=== PATIENT | female | born 1990 | race Caucasian/White ===

== ENCOUNTER 2018-08-01 22:30 | Emergency (ER) | payer MEDICAID ==
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
== END 2018-08-02 00:02 | disposition home or self-care (01) ==
LOC: JP.ED 22:30
DX: K52.9 Noninfective gastroenteritis and colitis, unspecified (principal); Z79.899 Other long term (current) drug therapy
CPT/HCPCS: 99284

== ENCOUNTER 2018-08-03 11:39 | Emergency (ER) | payer MEDICAID ==
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
== END 2018-08-03 13:36 | disposition home or self-care (01) ==
LOC: JP.ED 11:39
DX: B34.9 Viral infection, unspecified (principal); R10.84 Generalized abdominal pain; E66.9 Obesity, unspecified; Z98.890 Other specified postprocedural states
CPT/HCPCS: 36415; 80048; 85027; 99284

== ENCOUNTER 2020-08-23 23:32 | Emergency (ER) | payer MEDICAID ==
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
== END 2020-08-24 00:50 | disposition home or self-care (01) ==
LOC: JP.ED 23:32
DX: O20.8 Other hemorrhage in early pregnancy (principal); O99.211 Obesity complicating pregnancy, first trimester; E66.9 Obesity, unspecified; Z3A.14 14 weeks gestation of pregnancy
CPT/HCPCS: 36415; 84702; 85027; 99283; 99284

== ENCOUNTER 2021-02-18 04:44 | Inpatient (IN) | payer MEDICAID ==
[2021-02-18] MEDS ORDERED: Misoprostol 50 MCG (1/2 of 100 MCG) Tab VAG ONE (07:30)
[2021-02-18] MEDS ORDERED: Sodium Chloride 0.9% 10 ML Syringe FLUSH PRN ×2 (08:00→14:14)
[2021-02-18] MEDS ORDERED: Lactated Ringers 1,000 ML IV SCH (08:00)
[2021-02-18] MEDS ORDERED: fentaNYL 100 MCG/2 ML SDV IVPUSH PRN (08:00)
[2021-02-18] MEDS ORDERED: Ondansetron 4 MG/2 ML SDV IV PRN (08:00)
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
--- NOTE | 2021-02-18 08:56 | CRLUS ---
For Patients: As a result of the Century Cures Act, medical imaging exams and procedure reports are released immediately into your electronic medical record. You may view this report before your referring provider. If you have questions, please contact your health care provider. INDICATION: Planned induction TECHNIQUE: Ultrasound OB pelvis transabdominal. Real-time martin-scale imaging of the fetus was performed without stress testing. COMPARISON: None available FINDINGS: Sonographic imaging demonstrates a single living intrauterine gestation. Fetus demonstrates a regular cardiac rate of 140 beats per minute. Fetus has a cephalic orientation. The placenta lies anterior. Amniotic fluid volume appears normal. breathing movements, motion, and tone were all observed. IMPRESSION: Single viable intrauterine with a biophysical profile 03/02. Dictated by Bart Harmon MD @ 02/18/2021 8:56:[address] Bart Harmon @ Feb 18 2021 8:56AM
[2021-02-18] MEDS: Calcium Carbonate 500 MG Tab.Chew PO PRN ×2 (11:47→19:03)
--- NOTE | 2021-02-18 13:55 | PCM.PNLD ---
Labor Progress Note - VS & Meds Vital Signs: Last Vital Signs Temp 35.8 C L 02/18/21 12:00 Pulse 83 02/18/21 12:00 Resp 16 02/18/21 12:00 BP 126/73 02/18/21 12:00 Pulse Ox 98 02/18/21 07:33 Active Medications: Current Medications Calcium Carbonate/Glycine (Calcium Carbonate 500 Mg Tab.Chew) 1,000 mg PO Q2H PRN PRN Reason: Indigestion Last Admin: 02/18/21 11:47 Dose: 1,000 mg Documented by: Fentanyl (Fentanyl 100 Mcg/2 Ml Sdv) 100 mcg IVPUSH Q1H PRN PRN Reason: Pain (moderate 4-6) Lactated Ringer's (Ringers, Lactated) 1,000 mls @ 125 mls/hr IV ASDIRECTED FIONA Ondansetron HCl (Ondansetron 4 Mg/2 Ml Sdv) 4 mg IV Q4H PRN PRN Reason: Nausea/Vomiting Sodium Chloride (Sodium Chloride 0.9% 10 Ml Syringe) 10 ml FLUSH ASDIRECTED PRN PRN Reason: Keep Vein Open Discontinued Medications Misoprostol (Misoprostol 50 Mcg (1/2 Of 100 Mcg) Tab) 50 mcg VAG ONETIME ONE Stop: 02/18/21 07:31 Last Admin: 02/18/21 08:33 Dose: 50 mcg Documented by: - Uterine Contractions Uterine Monitoring Mode: External [place] Contraction Frequency (min): 1.5-2 Contraction Duration (sec): 50-60 Contraction Intensity: Moderate Uterine Resting Tone: Soft Other Uterine Monitoring: NOVII - Monitoring Monitor Mode: External Ultrasound Heart Rate (FHR) Variability: Moderate (6-25 bmp) Accelerations: Present, 15x15 Decelerations: None Strip Review: Category I - Vaginal Exam Dilation (cm): 5 Effacement (Percent): 80 Station: -2 Cervical Position: Midposition Sterile Vaginal Exam Performed By: Lenka Miles - Labor Progress (Free Text) Labor Progress: 02/18/21 Nice contraction pattern since this morning. Patient more uncomfortable now and breathing through contractions. SVE 5/80/-2. AROM done for small amount of clear fluid. Category 1 tracing. Calling for epidural shortly, bolus running.
[2021-02-18] MEDS ORDERED: Lactated Ringers 1,000 ML IV ONE (13:56)
[2021-02-18] MEDS ORDERED: ePHEDrine 50 MG/ML SDV IVPUSH PRN ×2 (13:56→14:14)
[2021-02-18] MEDS ORDERED: Naloxone 0.4 MG/ML SDV IVPUSH PRN (14:14)
[2021-02-18] MEDS ORDERED: diphenhydrAMINE 50 MG/ML SDV IVPUSH PRN ×2 (14:14)
[2021-02-18] MEDS ORDERED: ePHEDrine 50 MG/ML SDV ONE (14:22)
[2021-02-18] MEDS ORDERED: Lidocaine 1% 50 ML MDV ONE (14:23)
[2021-02-18] MEDS ORDERED: Ropivacaine 100 ML ONE (14:32)
--- NOTE | 2021-02-18 15:36 | ANES ---
DATE OF SERVICE: 02/18/2021 INDICATIONS: Ms. Manley is in active labor in approximately 5 cm and I was called by Lenka Miles to evaluate her for labor epidural. This is her second baby and she is in an active labor. Risks and benefits of the procedure were explained to the patient. She wished to proceed with a labor epidural. TECHNIQUE: She was placed in a sitting position. Her back was prepped x3 with Betadine, 1% lidocaine skin local was used. The epidural was placed at L3-4 using a 17-gauge Tuohy needle and loss of resistance technique. The epidural had very good feel throughout, and the epidural space was easily identified. There was negative CSF, negative blood, and negative paresthesias noted. Therefore, a catheter was threaded to 14 cm at the skin. There was negative CSF, negative blood, and negative paresthesias with the catheter. A 1.5% lidocaine test dose with epinephrine was given. This test dose was negative. The patient tolerated the test dose very nicely, therefore, a 12 mL bolus of 0.2% ropivacaine was given. The patient tolerated the bolus nicely and her vital signs remained stable. Therefore, the catheter was secured with a Tegaderm tape, and the patient was placed in a supine position. A bolus of 12 mL of 0.2% ropivacaine was given. She had very good results from the bolus and her vital signs remained stable. Therefore, a 0.2% ropivacaine drip was started at 12 mL/h. Her vital signs remained stable throughout the procedure and nurse was with me for the entire procedure. She had very good relief from the epidural and there were no complications noted. We will continue to monitor her throughout her Labor. Jorge Judd CRNA /[id number]
[2021-02-18] MEDS ORDERED: Ibuprofen 200 MG Tab, 24 Tab Bulk Bottle PO PRN (17:45)
[2021-02-18] MEDS ORDERED: Benzocaine 20% Top Spray 56 GM Bottle TOP ONE (17:45)
[2021-02-18] MEDS ORDERED: Acetaminophen 325 MG Tab, 50 Tab Bulk Bottle PO PRN (17:45)
[2021-02-18] MEDS ORDERED: Docusate Sodium 100 MG Cap PO PRN (17:45)
[2021-02-18] MEDS ORDERED: Witch Hazel Medicated Pads 100/Jar TOP ONE (17:45)
[2021-02-18] MEDS ORDERED: Lanolin 100% Cream 40 GM Tube TOP PRN (17:45)
--- NOTE | 2021-02-18 18:02 | PCM.DEL ---
L & D Note - General Info Date of Service: 02/18/21 Mother's Due Date: 02/20/21 - Delivery Note Labor: Augmented by ARM Cervical Ripening Method: Misoprostil Delivery Outcome: Livebirth Delivery Method: Spontaneous Vaginal Delivery-Single Infant Delivery Mode: Spontaneous Presentation: Left Occiput Anterior (ANT) Nuchal Cord: Present (1 loose, reduced) Anesthesia Type: Epidural Amniotic Fluid Description: Clear Episiotomy Type: None Laceration: None, Periurethral (skin tear, not repaired) Placenta: Intact, Spontaneous Cord: 3 Vessels Estimated Blood Loss: 350 Resuscitation Needed: Yes : Bulb Syringe, Stimulated, Warmed, [place] Used, Warmer Used Provider: Lenka Miles Score 1 min: 7 Score 5 min: 8 Second Stage Interventions: Reports: Second Nurse Assessed Progress of Descent, Second Nurse Reviewed Contraction Pattern, Second Nurse Reviewed Heart Tones, Encouragement Given, Pushing Effectively, Pushing, McRobert's Position Delivery Comments (Free Text/Narrative):: 02/18/21 30 yo G2 now P2 delivered viable female infant at 1723 today. Mother was induced this morning with misoprostol due to last labor being a difficult delivery. She is 39 5/7 weeks today with an uncomplicated . She advanced nicely with vaginal misoprostol and had AROM this afternoon of clear fluid. She continued to advance nicely without any additional medications and received an epidural for pain control. At complete she had a strong urge to push and pushed with great advancement. She was at the end of a contraction and had crowned and was holding her push but then heart tones were not found so we did have her push the head out without a contraction. There was a loose nuchal cord x 1 that was reduced easily. She did have difficulty pushing the shoulder out due to being in between contractions but was placed in Eli and within only a few seconds (15-20 seconds) the shoulder did deliver. Baby was in ANT position and was placed directly on mothers chest. Baby was slightly stunned but was trying to cry, cord was clamped and cut and baby was brought to the warmer. All she required was bulb suction and stimulation and she screamed and pinked up, she was then brought right back to mothers chest. Apgars 7, 8. The placenta delivered intact, spontaneous, 3 vessel cord. EBL 350 ml. There were no vaginal, perineal, or cervical lacerations. There is a periurethral skin split not repaired. FF and bleeding light. Pitocin given IV for third stage management. Stages of labor: 1: 9543-8805 2: 4530-1523 3: 8899-0674 Induction Criteria - Muhammad Score Muhammad Score Dilation: 3-4 cm Muhammad Score Effacement: 60-70% Muhammad Score 's Station: -3 Muhammad Score Consistency: Soft Muhammad Score Cervix Position: Midposition Muhammad Score Total: 7 Muhammad Score Presenting Part: Reports: Cephalic - Induction Gestational Age >/= 39 wks: Yes Estimated Pelvis: Reports: Adequate Reassuring Monitoring Strip: Yes Absence of Tachy Systole: Yes - Augmentation Estimated Pelvis: Reports: Adequate Weight Estimated:: Reports: AGA Estimated Weight if LGA: 4.082 kg Reassuring Monitoring Strip: Yes Absence of Tachy Systole: Yes - General Info Date of Service: 02/18/21 Functional Status: Reports: Pain Controlled - Review of Systems General: Reports: No Symptoms HEENT: Reports: No Symptoms Pulmonary: Reports: No Symptoms Cardiovascular: Reports: No Symptoms Gastrointestinal: Reports: No Symptoms Genitourinary: Reports: No Symptoms Musculoskeletal: Reports: No Symptoms Skin: Reports: No Symptoms Neurological: Reports: No Symptoms Psychiatric: Reports: No Symptoms - Patient Data Vitals - Most Recent: Last Vital Signs Temp 36.7 C 02/18/21 16:15 Pulse 114 H 02/18/21 16:15 Resp 16 02/18/21 16:15 BP 112/66 02/18/21 16:15 Pulse Ox 98 02/18/21 16:15 Weight - Most Recent: 108.862 kg Lab Results Last 24 Hours: Laboratory Results - last 24 hr 02/18/21 02/18/21 02/18/21 Range/Units 08:00 08:00 08:20 WBC 7.3 (4.5-11.0) K/uL RBC 3.84 (3.30-5.50) M/uL Hgb 10.1 L (12.0-15.0) g/dL Hct 32.1 L (36.0-48.0) % MCV 84 (80-98) fL MCH 26 L (27-31) pg MCHC 32 (32-36) % Plt Count 242 (150-400) K/uL Urine Color Yellow (YELLOW) Urine Appearance Slightly cloudy A (CLEAR) Urine pH 6.0 (5.0-8.0) Ur Specific [place] 1.025 (1.008-1.030) Urine Protein 30 H (NEGATIVE) mg/dL Urine Glucose (UA) Negative (NEGATIVE) mg/dL Urine Ketones Negative (NEGATIVE) mg/dL Urine Occult Blood Negative (NEGATIVE) Urine Nitrite Negative (NEGATIVE) Urine Bilirubin Negative (NEGATIVE) Urine Urobilinogen 0.2 (0.2-1.0) EU/dL Ur Leukocyte Esterase Small H (NEGATIVE) Urine RBC Not seen (0-5) Urine WBC 5-10 H (0-5) Ur Epithelial Cells Many Amorphous Sediment Moderate Urine Bacteria Many Urine Mucus Few Urine Opiates Screen Negative (NEGATIVE) Ur Oxycodone Screen Negative (NEGATIVE) Urine Methadone Screen Negative (NEGATIVE) Ur Propoxyphene Screen Negative (NEGATIVE) Ur Barbiturates Screen Negative (NEGATIVE) Ur Tricyclics Screen Negative (NEGATIVE) Ur Phencyclidine Scrn Negative (NEGATIVE) Ur Amphetamine Screen Negative (NEGATIVE) U Methamphetamines Scrn Negative (NEGATIVE) Urine MDMA Screen Negative (NEGATIVE) U Benzodiazepines Scrn Negative (NEGATIVE) U Cocaine Metab Screen Negative (NEGATIVE) U Marijuana (THC) Screen Negative (NEGATIVE) Med Orders - Current: Current Medications Acetaminophen (Acetaminophen 325 Mg Tab, 50 Tab Bulk Bottle) 0 mg PO Q4H PRN PRN Reason: Pain Benzocaine (Benzocaine 20% Top [place] 56 Gm Bottle) 0 gm TOP ONETIME ONE Stop: 02/18/21 17:46 Calcium Carbonate/Glycine (Calcium Carbonate 500 Mg Tab.Chew) 1,000 mg PO Q2H PRN PRN Reason: Indigestion Last Admin: 02/18/21 11:47 Dose: 1,000 mg Documented by: Diphenhydramine HCl (Diphenhydramine 50 Mg/Ml Sdv) 25 mg IVPUSH Q6H PRN PRN Reason: Itching Diphenhydramine HCl (Diphenhydramine 50 Mg/Ml Sdv) 50 mg IVPUSH Q6H PRN PRN Reason: Itching Docusate Sodium (Docusate Sodium 100 Mg Cap) 100 mg PO BID PRN PRN Reason: Constipation Emollient Ointment (Lanolin 100% Cream 40 Gm Tube) 40 gm TOP ASDIRECTED PRN PRN Reason: Other Ephedrine Sulfate (Ephedrine 50 Mg/Ml Sdv) 10 mg IVPUSH ASDIRECTED PRN PRN Reason: Hypotension Ephedrine Sulfate (Ephedrine 50 Mg/Ml Sdv) 10 mg IVPUSH ASDIRECTED PRN PRN Reason: Hypotension Last Admin: 02/18/21 15:16 Dose: 10 mg Documented by: Fentanyl (Fentanyl 100 Mcg/2 Ml Sdv) 100 mcg IVPUSH Q1H PRN PRN Reason: Pain (moderate 4-6) Lactated Ringer's (Ringers, Lactated) 1,000 mls @ 125 mls/hr IV ASDIRECTED FIONA Last Admin: 02/18/21 15:00 Dose: 125 mls/hr Documented by: Ibuprofen (Ibuprofen 200 Mg Tab, 24 Tab Bulk Bottle) 600 mg PO Q6H PRN PRN Reason: Pain Naloxone HCl (Naloxone 0.4 Mg/Ml Sdv) 0.1 mg IVPUSH ASDIRECTED PRN PRN Reason: Oversedation Ondansetron HCl (Ondansetron 4 Mg/2 Ml Sdv) 4 mg IV Q4H PRN PRN Reason: Nausea/Vomiting Sodium Chloride (Sodium Chloride 0.9% 10 Ml Syringe) 10 ml FLUSH ASDIRECTED PRN PRN Reason: Keep Vein Open Sodium Chloride (Sodium Chloride 0.9% 10 Ml Syringe) 10 ml FLUSH ASDIRECTED PRN PRN Reason: Keep Vein Open Witch Vanessa (Witch Vanessa Medicated Pads 100/Jar) 1 pad TOP ONETIME ONE Stop: 02/18/21 17:46 Discontinued Medications Ephedrine Sulfate (Ephedrine 50 Mg/Ml Sdv) Confirm Administered Dose 50 mg .ROUTE .STK-MED ONE Stop: 02/18/21 14:23 Lactated Ringer's (Ringers, Lactated) 1,000 mls @ 999 mls/hr IV .BOLUS ONE Stop: 02/18/21 14:56 Last Admin: 02/18/21 13:52 Dose: 999 mls/hr Documented by: Oxytocin/Sodium Chloride (Pitocin In Ns 20 Units/1,000 Ml) Confirm Administered Dose 20 unit in 1,000 mls @ as directed .ROUTE .STK-MED ONE Stop: 02/18/21 14:23 Ropivacaine (Naropin 0.2%) Confirm Administered Dose 100 mls @ as directed .ROUTE .STK-MED ONE Stop: 02/18/21 14:33 Lidocaine HCl (Lidocaine 1% 50 Ml Mdv) Confirm Administered Dose 100 ml .ROUTE .STK-MED ONE Stop: 02/18/21 14:24 Misoprostol (Misoprostol 50 Mcg (1/2 Of 100 Mcg) Tab) 50 mcg VAG ONETIME ONE Stop: 02/18/21 07:31 Last Admin: 02/18/21 08:33 Dose: 50 mcg Documented by: - Exam General: Alert, Oriented HEENT: Pupils Equal, Pupils Reactive, Mucous Membr. Moist/[place] Neck: Supple Lungs: Clear to Auscultation, Normal Respiratory Effort Cardiovascular: Regular Rate, Regular Rhythm GI/Abdominal Exam: Normal Bowel Sounds, Soft, Pelvis Stable (Female) Exam: Normal External Exam, Normal Bimanual Exam, Cervical Dilatation, Enlarged Uterus, Vaginal Bleeding Back Exam: Normal Inspection, Full Range of Motion Extremities: Normal Inspection, Normal Range of Motion, Non-Tender, No Pedal Edema, Normal Capillary Refill Skin: Warm, Dry, Intact Neurological: No New Focal Deficit Psy/Mental Status: Alert, Normal Affect, Normal Mood - Problem List & Annotations (1) Term SNOMED Code(s): 15540538 Code(s): Z34.90 - ENCNTR FOR SUPRVSN OF NORMAL , UNSP, UNSP TRIMESTER Status: Acute Current Visit: Yes (2) Elective induction of labor planned SNOMED Code(s): 363083403 Code(s): VAQ8381 - Status: Acute Current Visit: Yes (3) Vaginal delivery SNOMED Code(s): 669546189 Code(s): O80 - ENCOUNTER FOR FULL-TERM UNCOMPLICATED DELIVERY Status: Acute Current Visit: Yes (4) started SNOMED Code(s): 665241583 Code(s): ESQ9039 - Status: Acute Current Visit: Yes - Problem List Review Problem List Initiated/Reviewed/Updated: Yes - My Orders Last 24 Hours: My Active Orders 02/18/21 08:00 Patient Status [ADT] Routine Communication Order [RC] ASDIRECTED Heart Tones [RC] PER UNIT ROUTINE Notify Provider [RC] PRN Up ad Hoa [RC] ASDIRECTED Regular Diet [DIET] Calcium Carbonate [Tums] 1,000 mg PO Q2H PRN Lactated Ringers [Ringers, Lactated] 1,000 ml IV ASDIRECTED Ondansetron [Zofran] 4 mg IV Q4H PRN Sodium Chloride 0.9% [Saline Flush] 10 ml FLUSH ASDIRECTED PRN fentaNYL [Sublimaze] 100 mcg IVPUSH Q1H PRN DVT/VTE Prophylaxis Reflex [OM.PC] Routine Saline Lock Insert [OM.PC] Routine Resuscitation Status Routine 02/18/21 08:02 Notify Provider Vital Signs [RC] PRN 02/18/21 08:03 VTE/DVT Education [RC] Click to Edit 02/18/21 13:56 Communication Order [RC] ASDIRECTED Local Anesthetic Infusion Pump [RC] ASDIRECTED PCEA Epidural [RC] ASDIRECTED Urinary Catheter Assessment [RC] ASDIRECTED ePHEDrine [ePHEDrine sulfate] 10 mg IVPUSH ASDIRECTED PRN Epidural Catheter Management [OM.PC] Urgent 02/18/21 14:00 Insert Urinary Catheter [OM.PC] ASDIRECTED 02/18/21 17:45 Consult to Roller Setter [CONS] Routine Acetaminophen [Tylenol Bulk Bottle] See Dose Instructions PO Q4H PRN Benzocaine [Ctet-M-Xjpipjg 20% [place]] See Dose Instructions TOP ONETIME ONE Docusate Sodium [Colace] 100 mg PO BID PRN Ibuprofen [Motrin Bulk Bottle] 600 mg PO Q6H PRN Lanolin [Lansinoh HPA] 40 gm TOP ASDIRECTED PRN witch Vanessa [Tucks] 1 pad TOP ONETIME ONE Assess Lochia [WOMSER] Per Unit Routine Assess Uterine Involution [WOMSER] Per Unit Routine 02/18/21 17:46 Patient Status [ADT] Routine Vital Signs [RC] PFP 02/18/21 17:47 Ice Therapy [OM.PC] Per Unit Routine Perineal Care [OM.PC] Per Unit Routine 02/19/21 05:11 CBC WITH AUTO DIFF [HEME] AM - Assessment Assessment:: 02/18/21 with at 39 5/7 weeks Perineum intact other than perineal split not repaired FF EBL 350 ml Plans to breastfeed - Plan Plan:: 02/18/21 Assessment: here at 39 5/7 weeks for induction of labor due to tough first delivery Uncomplicated GBS negative rubella immune O pos blood type All STI screenings negative SVE /-3 Plan: 50 mcg cytotec inserted vaginally Monitor labor, intermittent monitoring after one hour Anticipate 02/18/21 Routine cares support Anticipate 24-48 hour stay
[2021-02-19] MEDS ORDERED: Benzocaine 20% Top Spray 56 GM Bottle TOP PRN (07:32)
[2021-02-19] MEDS ORDERED: Witch Hazel Medicated Pads 100/Jar TOP PRN (07:34)
--- NOTE | 2021-02-19 08:01 | PCM.PNPP ---
- General Info Date of Service: 02/19/21 Functional Status: Reports: Pain Controlled - Review of Systems General: Reports: No Symptoms HEENT: Reports: No Symptoms Pulmonary: Reports: No Symptoms Cardiovascular: Reports: No Symptoms Gastrointestinal: Reports: No Symptoms Genitourinary: Reports: No Symptoms Musculoskeletal: Reports: No Symptoms Skin: Reports: No Symptoms Neurological: Reports: No Symptoms Psychiatric: Reports: No Symptoms - General Info Date of Service: 02/19/21 - Patient Data Vital Signs - Most Recent: Last Vital Signs Temp 35.9 C L 02/19/21 02:29 Pulse 77 02/19/21 02:29 Resp 14 02/19/21 02:29 BP 115/80 02/19/21 02:29 Pulse Ox 96 02/19/21 02:29 Weight - Most Recent: 108.862 kg I&O - Last 24 Hours: Intake & Output 02/18/21 02/19/21 02/19/21 22:59 06:59 14:59 Intake Total 2500 800 Balance 2500 800 Lab Results - Last 24 Hours: Laboratory Results - last 24 hr 02/18/21 02/18/21 02/18/21 Range/Units 08:00 08:00 08:20 WBC 7.3 (4.5-11.0) K/uL RBC 3.84 (3.30-5.50) M/uL Hgb 10.1 L (12.0-15.0) g/dL Hct 32.1 L (36.0-48.0) % MCV 84 (80-98) fL MCH 26 L (27-31) pg MCHC 32 (32-36) % Plt Count 242 (150-400) K/uL Neut % (Auto) (36-66) % Lymph % (Auto) (24-44) % [place] % (Auto) (2-6) % Eos % (Auto) (2-4) % Baso % (Auto) (0-1) % Urine Color Yellow (YELLOW) Urine Appearance Slightly cloudy A (CLEAR) Urine pH 6.0 (5.0-8.0) Ur Specific [place] 1.025 (1.008-1.030) Urine Protein 30 H (NEGATIVE) mg/dL Urine Glucose (UA) Negative (NEGATIVE) mg/dL Urine Ketones Negative (NEGATIVE) mg/dL Urine Occult Blood Negative (NEGATIVE) Urine Nitrite Negative (NEGATIVE) Urine Bilirubin Negative (NEGATIVE) Urine Urobilinogen 0.2 (0.2-1.0) EU/dL Ur Leukocyte Esterase Small H (NEGATIVE) Urine RBC Not seen (0-5) Urine WBC 5-10 H (0-5) Ur Epithelial Cells Many Amorphous Sediment Moderate Urine Bacteria Many Urine Mucus Few Urine Opiates Screen Negative (NEGATIVE) Ur Oxycodone Screen Negative (NEGATIVE) Urine Methadone Screen Negative (NEGATIVE) Ur Propoxyphene Screen Negative (NEGATIVE) Ur Barbiturates Screen Negative (NEGATIVE) Ur Tricyclics Screen Negative (NEGATIVE) Ur Phencyclidine Scrn Negative (NEGATIVE) Ur Amphetamine Screen Negative (NEGATIVE) U Methamphetamines Scrn Negative (NEGATIVE) Urine MDMA Screen Negative (NEGATIVE) U Benzodiazepines Scrn Negative (NEGATIVE) U Cocaine Metab Screen Negative (NEGATIVE) U Marijuana (THC) Screen Negative (NEGATIVE) 02/19/21 Range/Units 05:40 WBC 10.3 (4.5-11.0) K/uL RBC 3.69 (3.30-5.50) M/uL Hgb 10.0 L (12.0-15.0) g/dL Hct 30.8 L (36.0-48.0) % MCV 84 (80-98) fL MCH 27 (27-31) pg MCHC 33 (32-36) % Plt Count 203 (150-400) K/uL Neut % (Auto) 67.7 H (36-66) % Lymph % (Auto) 23.6 L (24-44) % [place] % (Auto) 7.5 H (2-6) % Eos % (Auto) 1.0 L (2-4) % Baso % (Auto) 0.2 (0-1) % Urine Color (YELLOW) Urine Appearance (CLEAR) Urine pH (5.0-8.0) Ur Specific [place] (1.008-1.030) Urine Protein (NEGATIVE) mg/dL Urine Glucose (UA) (NEGATIVE) mg/dL Urine Ketones (NEGATIVE) mg/dL Urine Occult Blood (NEGATIVE) Urine Nitrite (NEGATIVE) Urine Bilirubin (NEGATIVE) Urine Urobilinogen (0.2-1.0) EU/dL Ur Leukocyte Esterase (NEGATIVE) Urine RBC (0-5) Urine WBC (0-5) Ur Epithelial Cells Amorphous Sediment Urine Bacteria Urine Mucus Urine Opiates Screen (NEGATIVE) Ur Oxycodone Screen (NEGATIVE) Urine Methadone Screen (NEGATIVE) Ur Propoxyphene Screen (NEGATIVE) Ur Barbiturates Screen (NEGATIVE) Ur Tricyclics Screen (NEGATIVE) Ur Phencyclidine Scrn (NEGATIVE) Ur Amphetamine Screen (NEGATIVE) U Methamphetamines Scrn (NEGATIVE) Urine MDMA Screen (NEGATIVE) U Benzodiazepines Scrn (NEGATIVE) U Cocaine Metab Screen (NEGATIVE) U Marijuana (THC) Screen (NEGATIVE) Med Orders - Current: Current Medications Acetaminophen (Acetaminophen 325 Mg Tab, 50 Tab Bulk Bottle) 0 mg PO Q4H PRN PRN Reason: Pain Last Admin: 02/18/21 19:03 Dose: 1 bottle Documented by: Benzocaine (Benzocaine 20% Top [place] 56 Gm Bottle) 0 gm TOP Q4H PRN PRN Reason: PAIN Calcium Carbonate/Glycine (Calcium Carbonate 500 Mg Tab.Chew) 1,000 mg PO Q2H PRN PRN Reason: Indigestion Last Admin: 02/18/21 19:03 Dose: 1,000 mg Documented by: Diphenhydramine HCl (Diphenhydramine 50 Mg/Ml Sdv) 25 mg IVPUSH Q6H PRN PRN Reason: Itching Diphenhydramine HCl (Diphenhydramine 50 Mg/Ml Sdv) 50 mg IVPUSH Q6H PRN PRN Reason: Itching Docusate Sodium (Docusate Sodium 100 Mg Cap) 100 mg PO BID PRN PRN Reason: Constipation Emollient Ointment (Lanolin 100% Cream 40 Gm Tube) 40 gm TOP ASDIRECTED PRN PRN Reason: Other Ephedrine Sulfate (Ephedrine 50 Mg/Ml Sdv) 10 mg IVPUSH ASDIRECTED PRN PRN Reason: Hypotension Last Admin: 02/18/21 15:16 Dose: 10 mg Documented by: Lactated Ringer's (Ringers, Lactated) 1,000 mls @ 125 mls/hr IV ASDIRECTED FIONA Last Admin: 02/18/21 15:00 Dose: 125 mls/hr Documented by: Oxytocin/Sodium Chloride (Pitocin In Ns 20 Units/1,000 Ml) 20 unit in 1,000 mls @ 2,997 mls/hr IV ASDIRECTED FIONA; Protocol Last Titration: 02/18/21 18:24 Dose: 41.67 munits/min, 125.01 mls/hr Documented by: Ibuprofen (Ibuprofen 200 Mg Tab, 24 Tab Bulk Bottle) 600 mg PO Q6H PRN PRN Reason: Pain Last Admin: 02/18/21 19:03 Dose: 1 bottle Documented by: Naloxone HCl (Naloxone 0.4 Mg/Ml Sdv) 0.1 mg IVPUSH ASDIRECTED PRN PRN Reason: Oversedation Ondansetron HCl (Ondansetron 4 Mg/2 Ml Sdv) 4 mg IV Q4H PRN PRN Reason: Nausea/Vomiting Sodium Chloride (Sodium Chloride 0.9% 10 Ml Syringe) 10 ml FLUSH ASDIRECTED PRN PRN Reason: Keep Vein Open Witch Vanessa (Witch Vanessa Medicated Pads 100/Jar) 1 pad TOP ASDIRECTED PRN PRN Reason: PAIN Discontinued Medications Benzocaine (Benzocaine 20% Top [place] 56 Gm Bottle) 0 gm TOP ONETIME ONE Stop: 02/18/21 17:46 Last Admin: 02/18/21 19:03 Dose: 1 can Documented by: Ephedrine Sulfate (Ephedrine 50 Mg/Ml Sdv) Confirm Administered Dose 50 mg .ROUTE .STK-MED ONE Stop: 02/18/21 14:23 Last Admin: 02/18/21 18:54 Dose: Not Given Documented by: Fentanyl (Fentanyl 100 Mcg/2 Ml Sdv) 100 mcg IVPUSH Q1H PRN PRN Reason: Pain (moderate 4-6) Lactated Ringer's (Ringers, Lactated) 1,000 mls @ 999 mls/hr IV .BOLUS ONE Stop: 02/18/21 14:56 Last Admin: 02/18/21 13:52 Dose: 999 mls/hr Documented by: Oxytocin/Sodium Chloride (Pitocin In Ns 20 Units/1,000 Ml) Confirm Administered Dose 20 unit in 1,000 mls @ as directed .ROUTE .STK-MED ONE Stop: 02/18/21 14:23 Last Admin: 02/18/21 18:54 Dose: Not Given Documented by: Ropivacaine (Naropin 0.2%) Confirm Administered Dose 100 mls @ as directed .ROUTE .STK-MED ONE Stop: 02/18/21 14:33 Lidocaine HCl (Lidocaine 1% 50 Ml Mdv) Confirm Administered Dose 100 ml .ROUTE .STK-MED ONE Stop: 02/18/21 14:24 Last Admin: 02/18/21 18:54 Dose: Not Given Documented by: Misoprostol (Misoprostol 50 Mcg (1/2 Of 100 Mcg) Tab) 50 mcg VAG ONETIME ONE Stop: 02/18/21 07:31 Last Admin: 02/18/21 08:33 Dose: 50 mcg Documented by: Rochelle Mendez (Rochelle Prescottel Medicated Pads 100/Jar) 1 pad TOP ONETIME ONE Stop: 02/18/21 17:46 Last Admin: 02/18/21 19:02 Dose: 1 bottle Documented by: - Interaction Disposition, : in Room with Family Interaction: Holding Infant Infant Feeding: Breastfed ; Nursed Well Support Person: - Recovery Exam Fundal Tone: Firm Fundal Level: At Umbilicus Fundal Placement: Midline Lochia Amount: Moderate Lochia Color: Rubra/Red Perineum Description: Intact, Minimal Bruising/Swelling Episiotomy/Laceration: None Bladder Status: Voiding - Exam General: Alert, Oriented, Cooperative HEENT: Pupils Equal, Pupils Reactive, EOMI, Mucous Membr. Moist/[place] Neck: Supple Lungs: Clear to Auscultation, Normal Respiratory Effort Cardiovascular: Regular Rate, Regular Rhythm GI/Abdominal Exam: Normal Bowel Sounds, Soft, Non-Tender, No Organomegaly, No Distention, No Abnormal Bruit, No Mass, Pelvis Stable Extremities: Normal Inspection, Normal Range of Motion, Non-Tender, No Pedal Edema, Normal Capillary Refill Skin: Warm, Dry, Intact Neurological: No New Focal Deficit Psy/Mental Status: Alert, Normal Affect, Normal Mood - Problem List & Annotations (1) started SNOMED Code(s): 074294864 Code(s): XFX7910 - Status: Acute Current Visit: Yes (2) Term SNOMED Code(s): 10995440 Code(s): Z34.90 - ENCNTR FOR SUPRVSN OF NORMAL , UNSP, UNSP TRIMESTER Status: Acute Current Visit: Yes (3) Vaginal delivery SNOMED Code(s): 678330686 Code(s): O80 - ENCOUNTER FOR FULL-TERM UNCOMPLICATED DELIVERY Status: Acute Current Visit: Yes - Problem List Review Problem List Initiated/Reviewed/Updated: Yes - Assessment Assessment:: 02/18/21 with at 39 5/7 weeks Perineum intact other than perineal split not repaired FF EBL 350 ml Plans to breastfeed 02/19/21 without complications Day One Fundus firm and bleeding decreasing Hgb 10.0 today Voiding and passing gas - Plan Plan:: 02/18/21 Assessment: here at 39 5/7 weeks for induction of labor due to tough first delivery Uncomplicated GBS negative rubella immune O pos blood type All STI screenings negative SVE /3 Plan: 50 mcg cytotec inserted vaginally Monitor labor, intermittent monitoring after one hour Anticipate 02/18/21 Routine cares support Anticipate 24-48 hour stay 02/19/21 Continue routine cares Continue support Anticipate discharge home tomorrow
--- NOTE | 2021-02-20 08:32 | PCM.PNPP ---
- General Info Date of Service: 02/20/21 Functional Status: Reports: Pain Controlled - Review of Systems General: Reports: No Symptoms HEENT: Reports: No Symptoms Pulmonary: Reports: No Symptoms Cardiovascular: Reports: No Symptoms Gastrointestinal: Reports: No Symptoms Genitourinary: Reports: No Symptoms Musculoskeletal: Reports: No Symptoms Skin: Reports: No Symptoms Neurological: Reports: No Symptoms Psychiatric: Reports: No Symptoms - General Info Date of Service: 02/20/21 - Patient Data Vital Signs - Most Recent: Last Vital Signs Temp 35.6 C L 02/20/21 07:00 Pulse 80 02/20/21 07:00 Resp 16 02/20/21 07:00 BP 125/79 02/20/21 07:00 Pulse Ox 97 02/20/21 07:00 Weight - Most Recent: 108.862 kg I&O - Last 24 Hours: Intake & Output 02/19/21 02/20/21 02/20/21 22:59 06:59 14:59 Intake Total 800 700 Balance 800 700 Med Orders - Current: Current Medications Acetaminophen (Acetaminophen 325 Mg Tab, 50 Tab Bulk Bottle) 0 mg PO Q4H PRN PRN Reason: Pain Last Admin: 02/18/21 19:03 Dose: 1 bottle Documented by: Benzocaine (Benzocaine 20% Top [place] 56 Gm Bottle) 0 gm TOP Q4H PRN PRN Reason: PAIN Calcium Carbonate/Glycine (Calcium Carbonate 500 Mg Tab.Chew) 1,000 mg PO Q2H PRN PRN Reason: Indigestion Last Admin: 02/18/21 19:03 Dose: 1,000 mg Documented by: Diphenhydramine HCl (Diphenhydramine 50 Mg/Ml Sdv) 25 mg IVPUSH Q6H PRN PRN Reason: Itching Diphenhydramine HCl (Diphenhydramine 50 Mg/Ml Sdv) 50 mg IVPUSH Q6H PRN PRN Reason: Itching Docusate Sodium (Docusate Sodium 100 Mg Cap) 100 mg PO BID PRN PRN Reason: Constipation Emollient Ointment (Lanolin 100% Cream 40 Gm Tube) 40 gm TOP ASDIRECTED PRN PRN Reason: Other Last Admin: 02/19/21 16:14 Dose: 1 bottle Documented by: Ephedrine Sulfate (Ephedrine 50 Mg/Ml Sdv) 10 mg IVPUSH ASDIRECTED PRN PRN Reason: Hypotension Last Admin: 02/18/21 15:16 Dose: 10 mg Documented by: Lactated Ringer's (Ringers, Lactated) 1,000 mls @ 125 mls/hr IV ASDIRECTED FIONA Last Admin: 02/18/21 15:00 Dose: 125 mls/hr Documented by: Oxytocin/Sodium Chloride (Pitocin In Ns 20 Units/1,000 Ml) 20 unit in 1,000 mls @ 2,997 mls/hr IV ASDIRECTED FIONA; Protocol Last Titration: 02/18/21 18:24 Dose: 41.67 munits/min, 125.01 mls/hr Documented by: Ibuprofen (Ibuprofen 200 Mg Tab, 24 Tab Bulk Bottle) 600 mg PO Q6H PRN PRN Reason: Pain Last Admin: 02/18/21 19:03 Dose: 1 bottle Documented by: Naloxone HCl (Naloxone 0.4 Mg/Ml Sdv) 0.1 mg IVPUSH ASDIRECTED PRN PRN Reason: Oversedation Ondansetron HCl (Ondansetron 4 Mg/2 Ml Sdv) 4 mg IV Q4H PRN PRN Reason: Nausea/Vomiting Sodium Chloride (Sodium Chloride 0.9% 10 Ml Syringe) 10 ml FLUSH ASDIRECTED PRN PRN Reason: Keep Vein Open Witch Vanessa (Witch Vanessa Medicated Pads 100/Jar) 1 pad TOP ASDIRECTED PRN PRN Reason: PAIN Discontinued Medications Benzocaine (Benzocaine 20% Top [place] 56 Gm Bottle) 0 gm TOP ONETIME ONE Stop: 02/18/21 17:46 Last Admin: 02/18/21 19:03 Dose: 1 can Documented by: Ephedrine Sulfate (Ephedrine 50 Mg/Ml Sdv) Confirm Administered Dose 50 mg .ROUTE .STK-MED ONE Stop: 02/18/21 14:23 Last Admin: 02/18/21 18:54 Dose: Not Given Documented by: Fentanyl (Fentanyl 100 Mcg/2 Ml Sdv) 100 mcg IVPUSH Q1H PRN PRN Reason: Pain (moderate 4-6) Lactated Ringer's (Ringers, Lactated) 1,000 mls @ 999 mls/hr IV .BOLUS ONE Stop: 02/18/21 14:56 Last Admin: 02/18/21 13:52 Dose: 999 mls/hr Documented by: Oxytocin/Sodium Chloride (Pitocin In Ns 20 Units/1,000 Ml) Confirm Administered Dose 20 unit in 1,000 mls @ as directed .ROUTE .STK-MED ONE Stop: 02/18/21 14:23 Last Admin: 02/18/21 18:54 Dose: Not Given Documented by: Ropivacaine (Naropin 0.2%) Confirm Administered Dose 100 mls @ as directed .ROUTE .STK-MED ONE Stop: 02/18/21 14:33 Lidocaine HCl (Lidocaine 1% 50 Ml Mdv) Confirm Administered Dose 100 ml .ROUTE .STK-MED ONE Stop: 02/18/21 14:24 Last Admin: 02/18/21 18:54 Dose: Not Given Documented by: Misoprostol (Misoprostol 50 Mcg (1/2 Of 100 Mcg) Tab) 50 mcg VAG ONETIME ONE Stop: 02/18/21 07:31 Last Admin: 02/18/21 08:33 Dose: 50 mcg Documented by: Rochelle Mendez (Rochelle Mendez Medicated Pads 100/Jar) 1 pad TOP ONETIME ONE Stop: 02/18/21 17:46 Last Admin: 02/18/21 19:02 Dose: 1 bottle Documented by: - Interaction Disposition, : in Room with Family Infant Interaction: Holding Infant Feeding: Breastfed Infant; Nursed Well Support Person: - Recovery Exam Fundal Tone: Firm Fundal Level: 2 Fingerbreadths Below Umbilicus Fundal Placement: Midline Lochia Amount: Small Lochia Color: Rubra/Red Perineum Description: Intact, Minimal Bruising/Swelling Episiotomy/Laceration: None Bladder Status: Voiding Urinary Elimination: Voided - Exam General: Alert, Oriented, Cooperative HEENT: Pupils Equal, Pupils Reactive, EOMI, Mucous Membr. Moist/[place] Neck: Supple Lungs: Clear to Auscultation, Normal Respiratory Effort Cardiovascular: Regular Rate, Regular Rhythm GI/Abdominal Exam: Normal Bowel Sounds, Soft, Non-Tender, No Organomegaly, No Distention, No Abnormal Bruit, No Mass, Pelvis Stable Extremities: Normal Inspection, Normal Range of Motion, Non-Tender, No Pedal Edema, Normal Capillary Refill Skin: Warm, Dry, Intact Neurological: No New Focal Deficit Psy/Mental Status: Alert, Normal Affect, Normal Mood - Problem List & Annotations (1) started SNOMED Code(s): 732705066 Code(s): [id number] - Status: Acute Current Visit: Yes (2) Term SNOMED Code(s): 94829047 Code(s): Z34.90 - ENCNTR FOR SUPRVSN OF NORMAL , UNSP, UNSP TRIMESTER Status: Acute Current Visit: Yes (3) Vaginal delivery SNOMED Code(s): 184147000 Code(s): O80 - ENCOUNTER FOR FULL-TERM UNCOMPLICATED DELIVERY Status: Acute Current Visit: Yes - Problem List Review Problem List Initiated/Reviewed/Updated: Yes - Assessment Assessment:: 02/18/21 with at 39 5/7 weeks Perineum intact other than perineal split not repaired FF EBL 350 ml Plans to breastfeed 02/19/21 without complications Day One Fundus firm and bleeding decreasing Hgb 10.0 today Voiding and passing gas 01/24/21 without complications Day Two Fundus firm and bleeding decreasing Voiding and passing gas well Discharge home today - Plan Plan:: 02/18/21 Assessment: here at 39 5/7 weeks for induction of labor due to tough first delivery Uncomplicated GBS negative rubella immune O pos blood type All STI screenings negative SVE Plan: 50 mcg cytotec inserted vaginally Monitor labor, intermittent monitoring after one hour Anticipate 02/18/21 Routine cares support Anticipate 24-48 hour stay 02/19/21 Continue routine cares Continue support Anticipate discharge home tomorrow 02/20/21 Continue routine cares Continue support Discharge home today To see provider in clinic in six weeks for visit
== END 2021-02-20 13:00 | disposition home or self-care (01) | DRG 807 ==
LOC: EDSTATUS 04:44 → JP.OB 06:50 → OBSVTOIN 17:23 → JP.MS 20:00
PROVIDERS: ADMIT Advanced Practice Midwife; ATTEND Advanced Practice Midwife
PROC: 10E0XZZ Delivery of Products of Conception, External Approach (ICD-10-PCS; principal; 2021-02-18)
PROC: 10907ZC Drainage of Amniotic Fluid, Therapeutic from Products of Conception, Via Natural or Artificial Opening (ICD-10-PCS; 2021-02-18)
PROC: 3E0P7VZ Introduction of Hormone into Female Reproductive, Via Natural or Artificial Opening (ICD-10-PCS; 2021-02-18)
PROC: 3E0R3BZ Introduction of Anesthetic Agent into Spinal Canal, Percutaneous Approach (ICD-10-PCS; 2021-02-18)
DX: O69.81X0 Labor and delivery complicated by cord around neck, without compression, not applicable or unspecified (principal); Z37.0 Single live birth; Z3A.39 39 weeks gestation of pregnancy; O70.0 First degree perineal laceration during delivery; Z20.822 Contact with and (suspected) exposure to COVID-19
CPT/HCPCS: 36415; 51702; 76819; 80305-QW; 81001; 85025; 85027; A9270-GY; J2590; J2795; J7120